=== PATIENT | male | born 1970 ===

== ENCOUNTER 2019-06-28 18:34 | Inpatient (IN) | payer BC ==
--- NOTE | 2019-06-28 20:20 | ED ---
Upper Extremity Pain - HPI Summary HPI Summary: This patient is a 48 year old M presenting to [facility] with a chief complaint of an abscess on his left forearm since 3 weeks ago. He complains of pain radiating from his left wrist to his left shoulder. Pt states his SO developed a similar abscess after they both injected heroin. he believes it might have been tainted., He has not been taking pain medications. The patient rates the pain 10/10 in severity. Symptoms aggravated by nothing. Symptoms alleviated by nothing. Patient reports upper back pain, fever, vomiting. Patient denies diarrhea. last used heroin about 6 pm today. - History of Current Complaint Chief Complaint: EDExtremityUpper Stated Complaint: ABSESS ON LT ARM PER PT Time Seen by Provider: 06/28/19 20:11 Hx Obtained From: Patient Onset/Duration: Started Weeks Ago - 3, Still Present Severity Initially: Moderate Severity Currently: Moderate Pain Location: Forearm - left to left shoulder Aggravating Factor(s): Nothing Alleviating Factor(s): Nothing Associated Signs & Symptoms: Positive: Fever, Vomiting, Other - positive - upper back pain, abscess on his left forearm, pain radiating from his left wrist to his left shoulder. negative - diarrhea. - Allergies/Home Medications Allergies/Adverse Reactions: Allergies Allergy/AdvReac Type Severity Reaction Status Date / Time bupropion Allergy Hives Verified 06/28/19 21:56 Home Medications: Home Medications Buprenorp/Nalox 8-2 MG FILM [Suboxone] 3 film SL DAILY 06/28/19 [History Confirmed 06/28/19] Gabapentin TAB(NF) [Neurontin 600 mg TAB(NF)] 600 mg PO QID 06/28/19 [History Confirmed 06/28/19] Benzonatate CAP* [Tessalon 100 MG CAP*] 100 mg PO TID 06/29/19 [History Confirmed 06/29/19] FLUoxetine CAP* [Prozac CAP*] 30 mg PO DAILY 06/29/19 [History Confirmed ] Fluticasone/Vilanterol [Breo Ellipta 200-25 Mcg INH] 1 puff INH DAILY 06/29/19 [ History Confirmed 06/29/19] Ibuprofen 600 mg PO Q6HR PRN 06/29/19 [History Confirmed 06/29/19] Omeprazole CAP (NF) [Prilosec CAP* 20 MG] 20 mg PO BID 06/29/19 [History Confirmed 06/29/19] Ondansetron TAB* [Zofran 4 MG Tab*] 4 mg PO TID PRN 06/29/19 [History Confirmed 06/29/19] PMH/Surg Hx/FS Hx/Imm Hx Previously Healthy: No Sensory History: Denies: Hx Cataracts, Hx Contacts or Glasses, Hx Vision Problem, Hx Deafness EENT History: Denies: Hx Deafness, Hx Auditory Problems - Surgical History Surgical History: None Infectious Disease History: No Infectious Disease History: Denies: Traveled Outside the [place] in Last 30 Days - Family History Known Family History: Positive: None - Social History Alcohol Use: Occasionally Substance Use Type: Reports: Heroin Hx Tobacco Use: No Smoking Status (MU): Never Smoked Tobacco Review of Systems Positive: Fever Positive: Vomiting. Negative: Diarrhea Musculoskeletal: Other - positive - upper back pain, pain radiating from his left wrist to his left shoulder. Skin: Other - positive - abscess on left forearm All Other Systems Reviewed And Are Negative: Yes Physical Exam - Summary Physical Exam Summary: General: Well-developed, Well-nourished obese MALE. Moderate discomfort. HEENT: Normocephalic, Atraumatic. Edentulous Eyes: Conjuctiva normal, PERRL. Ears: TMs within normal limits. Nares: (-) discharge, (-) erythema. Oropharynx: Clear, mucous membranes moist, (-) exudates. Neck: Soft, FROM, (-) lymphadenopathy, (-) thyromegaly, (-) JVD. Cardiovascular: Normal sinus rhythm, (-) murmur. Lungs: Clear to auscultation bilaterally (-) wheezes, (-) rales, (-) rhonchi. Abdomen: Soft, non-tender, non-distended, (-) organomegaly, normal bowel sounds. Back: (-) CVA tenderness Extremities: No edema. Skin: Warm, dry, (-) rash. Left arm has erythema and swelling from the whole forearm and hand, worst at the wrist area. Warm and tender to palpation Neuro: Alert and oriented x3, no focal deficits. Psychiatric: Mood normal, affect normal. Triage Information Reviewed: Yes Vital Signs On Initial Exam: Initial Vitals Temp Pulse Resp BP Pulse Ox 100.6 F 108 20 142/92 92 06/28/19 18:36 06/28/19 18:36 06/28/19 18:36 06/28/19 18:36 06/28/19 18:36 Vital Signs Reviewed: Yes Procedures - Sedation Patient Received Moderate/Deep Sedation with Procedure: No Diagnostics - Vital Signs Vital Signs Temp Pulse Resp BP Pulse Ox 06/28/19 18:36 100.6 F 108 20 142/92 92 - Laboratory Result Diagrams: 06/28/19 20:31 06/28/19 20:31 Lab Statement: Any lab studies that have been ordered have been reviewed, and results considered in the medical decision making process. Course/Dx - Course Course Of Treatment: patient with cellulitis for 2-3 weeks. elevated wbc and lactic acid. During ED course, pt was given Toradol, fluids, Zofran, Zosyn. referred to hospitalist for admission and iv antibiotics - Diagnoses Provider Diagnoses: Cellulitis, IV drug user - Physician Notifications Discussed Care of Patient With: Dr. Rose Time Discussed With Above Provider: 21:44 Instructed by Provider To: Other - Dr. Rose agrees to admit pt. Discharge ED - Sign-Out/Discharge Documenting (check all that apply): Patient Departure - admit - Discharge Plan Condition: Stable Disposition: ADMITTED TO [facility] - Billing Disposition and Condition Condition: STABLE Disposition: Admitted to [facility] - Attestation Statements Document Initiated by Amilcar: Yes Documenting Scribe: Demetrio Shirley Provider For Whom Amilcar is Documenting (Include Credential): Dr. Makeda Mireles MD Scribe Attestation: IDemetrio scribed for Dr. Makeda Mireles MD on 06/29/19 at 0520. Scribe Documentation Reviewed: Yes Provider Attestation: The documentation as recorded by the Demetrio deras accurately reflects the service I personally performed and the decisions made by me, Dr. Makeda Mireles MD Status of Scribe Document: Viewed
[2019-06-28] MEDS ORDERED: NS 0.9% 1000 ML** 1,000 ML IV ONE (20:29)
[2019-06-28] MEDS ORDERED: Piperacillin/Tazobac ADVAN(*) 3.375 GM in NS 0.9% 100 ML* 100 ML IVPB ONE (20:29)
[2019-06-28] MEDS ORDERED: Ondansetron INJ* 2 MG/ML VIAL IV ONE (20:37)
[2019-06-28] MEDS ORDERED: Ketorolac INJ* 30 MG/ML 1 ML VIAL IV PUSH ONE (20:37)
[2019-06-28] MEDS ORDERED: Acetaminophen TAB* 325 MG PO ONE (20:38)
[2019-06-28 20:40] LABS: ABS Basophils 0.1 10^3/ul (0-0.2); ABS Lymphocytes 1.2 10^3/ul (1.0-4.8); ABS Neutrophils 13.9 10^3/ul (1.5-7.7); Hematocrit 41 % (42-52); Lymphocyte % 7.5 %; Mean Corpuscular HGB Conc 34 g/dL (31-36); Mean Corpuscular Hemoglobin 32 pg (27-31); Mean Corpuscular Volume 92 fL (80-94); Platelet Count 316 10^3/uL (150-450); Red Blood Count 4.42 10^6 /uL (4.18-5.48); Red Cell Distribution Width 14 % (10-15); White Blood Count 16.1 10^3/uL (3.5-10.8)
[2019-06-28 20:48] LABS: INR 1.48 (0.82-1.09)
[2019-06-28 20:52] LABS: Albumin 4.1 g/dL (3.2-5.2); Calcium 9.1 mg/dL (8.6-10.3); Potassium 4.1 mmol/L (3.5-5.0); Total Bilirubin 0.7 mg/dL (0.2-1.0)
[2019-06-28 20:55] LABS: Urine Appearance Clear; Urine Bilirubin Negative (Negative); Urine Blood 1+ (Negative); Urine Color Yellow; Urine Glucose Negative (Negative); Urine Ketones Negative (Negative); Urine Nitrite Negative (Negative); Urine Protein Negative (Negative); Urine Specific Gravity 1.021 (1.010-1.030); Urine Urobilinogen Negative (Negative)
[2019-06-28 20:57] LABS: Urine Bacteria Absent (Absent); Urine Red Blood Cell 1+(3-5/hpf) (Absent); Urine Squamous Epithelial Cell Present (Absent); Urine White Blood Cell Absent (Absent)
[2019-06-28 20:58] LABS: Albumin/Globulin Ratio 0.9 (1-3); BUN/Creatinine Ratio 11.9 (8-20); EGFR African American 79.4 (>60); EGFR Non-African American 65.6 (>60); Globulin 4.8 g/dL (2-4); Total Protein 8.9 g/dL (6.4-8.9)
[2019-06-28 21:49] LABS: Urine Benzodiazepine Screen None Detected (None Detect); Urine Opiates Screen Presumptive Positive (None Detect)
--- NOTE | 2019-06-28 22:28 | HP ---
History of Present Illness - History of Present Illness Reason for Visit: arm abscess History of Present Illness: 48 year old male with history of polysubstance abuse came tot he ED with left arm pain from an abscess. He used on that arm and developed an infection, it has been a month since he has had this infection. He came to the ED because the pain is now 10/10. it radiates from wrist to shoulder. His gf used same needle as well, and now [facility] with [facility]es and bacteremia. - Past Medical History Psych: Addictions Review of Systems - Measurements Intake and Output: Intake and Output Last 24 Hours 06/26/19 06/27/19 06/28/19 06/29/19 06:59 06:59 06:59 06:59 Intake Total 1100 Balance 1100 Weight 236 lb Intake: IV Fluids 1100 - Review of Systems Constitutional Symptoms: Positive: Fever, Night Sweats Dermatology: Positive: Skin Lesions HEENT: Negative: Normal, Change in Hearing, Vertigo, Dental Problems, Tinnitus, Sinus Problem, Other Eyes: Negative: Normal, Change in Vision, Double Vision, Eye Pain, Glaucoma, Cataract, Contacts or Glasses, Other Thyroid: Negative: Normal, Goiter, Thyroid Nodule, Cold Intolerance, Heat Intolerance , Sweatiness, Tremor, Frequent Defecation, Constipation, Palpitations, Primary Hypothyroidism, Primary Hyperthyroidism, Weight Loss, Weight Gain, Change in Skin/Hair, Change in Menstruation, Radiation Exposure, Other Pulmonary: Negative: Normal, Cough, Sputum, Hemoptysis, Wheezing, Respiratory Distress, Shortness of Breath, COPD, Asthma, Exercise Intolerance, Home Oxygen, Other Cardiology: Negative: Normal, Chest Pain, Shortness of Breath, Palpitations, Swelling of Ankles, Peripheral Vascular Dis, Edema, Faintness, Syncope, Claudication, Proximal NocturnalDyspnea, Orthopnoea, Other Gastroenterology: Negative: Normal, Abdominal Pain, Nausea, Vomiting, Anorexia, Indigestion, Difficulty Swallowing, Heartburn, Constipation, Diarrhea, Blood in Stools, Change in Bowel Habits, Haematemesis, Melena, Other Genital - Urinary: Negative: Normal, Dysuria, Hematuria, Polyuria, Nocturia, Other Musculoskeletal: Negative: Joint Pain, Joint Stiffness, Arthritis, Osteoporosis, Low Back Pain , Sciatica, Joint Deformities, Kyphoscoliosis, Other Hematologic/Lymphatic: Negative: Anemia, Easy Bruising, Hx Leukemia, Hx Lymphoma, Use of Anticoagulant, Use of Antiplatelet Drugs, Other Neurology: Negative: Normal, Headache, Migraines, Change in Vision, Diplopia, Dizziness , Change in Balancing, Change in Coordination, Change in Memory, Change in Speech, Change in Sphincter Function, Change in Walking, Numbness\Paresthesiae, Unexplained Weakness, Hx of Stroke\TIA, Hx of Seizures, Other Psychiatry: Negative: Normal, Depression, Anxiety, Depressed Mood, Anhedonia, Sexual Dysfunction, Weight Change, Guilt Feelings, Tearfulness, Unusual Fatigue, Unusual Anxiety, Suicidal Ideation, Hypomania, Eating Disorders, Other Allergic/Immunologic: Negative: Hx Anaphylaxis, Hx Angioedema, Hx Environmental, Hx Seasonal, Asthma, Hx HIV, Immunocompromise, Swollen Glands LymphNodes, Other Objective Active Medications: Acetaminophen (Tylenol Tab*) 650 mg PO Q4H PRN PRN Reason: MILD PAIN or TEMP > 100.4 Heparin Sodium (Porcine) (Heparin Vial(*)) 5,000 units SUBCUT Q8HR [facility] Sodium Chloride (Ns 0.9% 1000 Ml) 1,000 mls @ 100 mls/hr IV PER RATE [facility] Ondansetron HCl (Zofran Inj*) 4 mg IV Q4H PRN PRN Reason: NAUSEA Oxycodone/Acetaminophen (Percocet 5/325 Tab*) 1 tab PO Q4H PRN PRN Reason: PAIN - MODERATE Vital Signs - 8 hr 06/28/19 06/28/19 06/28/19 18:36 20:26 20:30 Temperature 100.6 F Pulse Rate 108 201 203 Respiratory 20 Rate Blood Pressure 142/92 178/94 (mmHg) O2 Sat by Pulse 92 91 91 Oximetry 06/28/19 06/28/19 06/28/19 20:45 21:00 21:01 Temperature 103.2 F Pulse Rate 98 104 Respiratory 12 14 Rate Blood Pressure 144/79 (mmHg) O2 Sat by Pulse 94 96 Oximetry 06/28/19 06/28/19 06/28/19 21:30 21:54 22:00 Temperature 99.5 F Pulse Rate 87 82 Respiratory 20 12 Rate Blood Pressure 128/74 118/74 (mmHg) O2 Sat by Pulse 94 94 Oximetry 06/28/19 22:01 Temperature Pulse Rate 92 Respiratory 17 Rate Blood Pressure (mmHg) O2 Sat by Pulse 94 Oximetry Oxygen Devices in Use Now: Nasal Cannula Appearance: body sweats, he is drenched. Eyes: No Scleral Icterus, PERRLA Ears/Nose/Mouth/Throat: Clear Oropharnyx, Mucous Membranes Moist Neck: NL Appearance and Movements; NL JVP, Trachea Midline Respiratory: Symmetrical Chest Expansion and Respiratory Effort, Clear to Auscultation Cardiovascular: NL Sounds; No Murmurs; No JVD, RRR, No Edema Abdominal: NL Sounds; No Tenderness; No Distention, No Hepatosplenomegaly Lymphatic: No Cervical Adenopathy Extremities: No Edema, No Clubbing, Cyanosis, - - fluctuant area (left upper EXT concerninf for abscess) with surrouding edema and erythema extending from his wrist to elbow Skin: - - erythema ( left arm) Neurological: Alert and Oriented x 3, NL Sensation, NL Muscle Strength and Tone Result Diagrams: 06/28/19 20:31 06/28/19 20:31 Assess/Plan/Problems-Billing Assessment: - Patient Problems (1) Abscess of arm, left Current Visit: Yes Status: Acute Code(s): L02.414 - CUTANEOUS ABSCESS OF LEFT UPPER LIMB SNOMED Code(s): 37187134412154981 Comment: 1 month hx of abscess from IV drug use, with surrounding edema and erythema from wrist to elbow. Pt has pain from wrist to shoulder team to consult surgery in the morning for I&D Vanc and zosyn blood cultures CXR (2) Heroin use Current Visit: Yes Status: Acute Code(s): F11.90 - OPIOID USE, UNSPECIFIED, UNCOMPLICATED SNOMED Code(s): 7150895 Comment: last use this evening, already appears to be in withdrawals clonidine prn for withdrawals (3) Full code status Current Visit: Yes Status: Acute Code(s): Z78.9 - OTHER SPECIFIED HEALTH STATUS SNOMED Code(s): 105994357 (4) DVT prophylaxis Current Visit: Yes Status: Acute Code(s): Z29.9 - ENCOUNTER FOR PROPHYLACTIC MEASURES, UNSPECIFIED SNOMED Code(s): 075564676
[2019-06-28] MEDS ORDERED: Vancomycin(*) 1,500 MG in NS 0.9% 250 ML* 250 ML IVPB ONE (22:36)
[2019-06-28] MEDS: Heparin VIAL(*) 5000 UNITS/ML VIAL (FIVE THOUSAND) SUBCUT SCH (22:47)
[2019-06-28 22:49] LABS: Erythrocyte Sed Rate 72 mm/Hr (0-14)
[2019-06-28] MEDS ORDERED: Zosyn per Pharmacy* NOTE FOLLOW UP SCH (23:00)
[2019-06-28] MEDS ORDERED: Vancomycin per Pharmacy* NOTE FOLLOW UP SCH (23:00)
[2019-06-29] MEDS: NS 0.9% 1000 ML** 1,000 ML IV SCH ×2 (00:53→20:45)
[2019-06-29] MEDS: ZOSYN 3.375 GM Q8H per EXTENDED INFUSION IVPB SCH ×6 (00:53→17:19)
[2019-06-29] MEDS: Heparin VIAL(*) 5000 UNITS/ML VIAL (FIVE THOUSAND) SUBCUT SCH ×3 (05:50→21:30)
[2019-06-29] MEDS: Vancomycin(*) 1,000 MG in NS 0.9% 250 ML* 250 ML IV SCH ×3 (05:58→22:28)
[2019-06-29 06:21] LABS: ABS Eosinophils 0.1 10^3/ul (0-0.6); ABS Lymphocytes 1.3 10^3/ul (1.0-4.8); ABS Monocytes 1.1 10^3/ul (0-0.8); ABS Neutrophils 8.2 10^3/ul (1.5-7.7); Eosinophil % 0.5 %; Hematocrit 37 % (42-52); Hemoglobin 12.7 g/dL (14.0-18.0); Lymphocyte % 12.5 %; Mean Corpuscular HGB Conc 35 g/dL (31-36); Mean Corpuscular Hemoglobin 32 pg (27-31); Mean Corpuscular Volume 92 fL (80-94); Mean Platelet Volume 7.5 fL (7.4-10.4); Platelet Count 226 10^3/uL (150-450); Red Blood Count 3.96 10^6 /uL (4.18-5.48); Red Cell Distribution Width 13 % (10-15); White Blood Count 10.7 10^3/uL (3.5-10.8)
[2019-06-29 06:35] LABS: BUN/Creatinine Ratio 14.3 (8-20); Calcium 8.3 mg/dL (8.6-10.3); EGFR African American 84.3 (>60); EGFR Non-African American 69.7 (>60); Potassium 3.6 mmol/L (3.5-5.0)
[2019-06-29] MEDS: oxyCODONE/Acetamin 5/325 MG* TAB PO PRN ×4 (08:00→23:58)
[2019-06-29] MEDS: cloNIDine TAB* 0.1 MG PO PRN ×3 (08:09→19:45)
--- NOTE | 2019-06-29 10:56 | CONSULT ---
Consult Consult: DATE OF CONSULTATION: 06/29/19 REASON FOR CONSULTATION: Left arm cellulitis, possible abscess HPI: Mr Crowder is a 48 yo man with a history of IVDA who was admitted with L forearm cellulitis. He reports that he first noticed redness and pain 3-4 weeks ago at the medial wrist at the site where he injects. He has had night sweats and subjective fevers for the past 2 weeks. The pain continued to worsen, and he started having pain in the left shoulder yesterday. He presented to the ED due to the L shoulder pain and concern for worsening infection. He also reports palpitations yesterday which have resolved. His appetite is unchanged however he reports a 25-lb weight loss over the past 3 weeks. The patient was admitted to the hospitalist service and started on vancomycin and Zosyn. He was febrile last night but afebrile this morning. PAST MEDICAL HISTORY: IVDA PAST SURGICAL HISTORY: Laparoscopic cholecystectomy 2007 Home Medications Medication Instructions Recorded Confirmed Type Buprenorp/Nalox 8-2 MG FILM 3 film SL DAILY 06/28/19 06/28/19 History [Suboxone] Gabapentin TAB(NF) [Neurontin 600 600 mg PO QID 06/28/19 06/28/19 History mg TAB(NF)] Benzonatate CAP* [Tessalon 100 MG 100 mg PO TID 06/29/19 06/29/19 History CAP*] FLUoxetine CAP* [Prozac CAP*] 30 mg PO DAILY 06/29/19 06/29/19 History Fluticasone/Vilanterol [Breo 1 puff INH DAILY 06/29/19 06/29/19 History Ellipta 200-25 Mcg INH] Ibuprofen 600 mg PO Q6HR PRN 06/29/19 06/29/19 History Omeprazole CAP (NF) [Prilosec CAP* 20 mg PO BID 06/29/19 06/29/19 History 20 MG] Ondansetron TAB* [Zofran 4 MG Tab*] 4 mg PO TID PRN 06/29/19 06/29/19 History Allergies bupropion Allergy (Verified 06/28/19 21:56) Hives FAMILY HISTORY: Father 1 year ago due to emphysema. Mother is alive and reportedly healthy. Siblings healthy. SOCIAL HISTORY: Smokes 0.5 ppd since age 9. Denies alcohol use but did drink heavily when he was a teenager. Uses heroin, last injection yesterday. His girlfriend is hospitalized in [place] due to pulmonary abscesses due to IVDA. ROS: A 14-point review of systems was completed and pertinent findings are in HPI. PHYSICAL EXAM: Temp Pulse Resp BP Pulse Ox 97.7 F 82 16 120/59 96 06/29/19 07:15 06/29/19 07:15 06/29/19 10:00 06/29/19 07:15 06/29/19 07:15 GENERAL: No acute distress HEAD: Normocephalic, atraumatic. EYES: EOMI. MOUTH: Moist mucous membranes. CV: RRR CHEST: Clear to auscultation bilaterally ABDOMEN: Soft, nontender, nondistended. EXTREMITIES: Warm, well-perfused. No pedal edema. L radial pulse 2+ SKIN: Erythema and swelling of the medial aspect of distal L forearm. Tender to palpation. L hand and forearm are swollen. No fluctuance over the distal forearm. NEURO: Alert and oriented x3. Abnormal Lab Results 06/28/19 06/28/19 06/28/19 20:30 20:31 20:31 WBC 16.1 H RBC 4.42 Hgb 14.0 Hct 41 L MCV 92 MCH 32 H MCHC 34 RDW 14 Plt Count 316 MPV 7.0 L Neut % (Auto) 86.1 Lymph % (Auto) 7.5 [place] % (Auto) 6.0 Eos % (Auto) 0.0 Baso % (Auto) 0.4 Absolute Neuts (auto) 13.9 H Absolute Lymphs (auto) 1.2 Absolute Monos (auto) 1.0 H Absolute Eos (auto) 0.0 Absolute Basos (auto) 0.1 Absolute Nucleated RBC 0.0 Nucleated RBC % 0.0 ESR 72 H INR (Anticoag Therapy) 1.48 H Sodium 130 L Potassium 4.1 Chloride 93 L Carbon Dioxide 26 Anion Gap 11 BUN 14 Creatinine 1.18 H Est GFR ( Amer) 79.4 Est GFR (Non-Af Amer) 65.6 BUN/Creatinine Ratio 11.9 Glucose 107 H Lactic Acid Calcium 9.1 Total Bilirubin 0.70 AST 51 H ALT 57 H Alkaline Phosphatase 135 H Total Protein 8.9 Albumin 4.1 Globulin 4.8 H Albumin/Globulin Ratio 0.9 L Urine Color Urine Appearance Urine pH Ur Specific [place] Urine Protein Urine Ketones Urine Blood Urine Nitrate Urine Bilirubin Urine Urobilinogen Ur Leukocyte Esterase Urine WBC (Auto) Urine RBC (Auto) Ur Squamous Epith Cells Urine Bacteria Urine Glucose Urine Opiates Screen Ur Barbiturates Screen Ur Phencyclidine Scrn Ur Amphetamines Screen U Benzodiazepines Scrn Urine Cocaine Screen U Cannabinoids Screen 06/28/19 06/28/19 06/28/19 20:31 20:37 20:37 WBC RBC Hgb Hct MCV MCH MCHC RDW Plt Count MPV Neut % (Auto) Lymph % (Auto) [place]ink[place] % (Auto) Eos % (Auto) Baso % (Auto) Absolute Neuts (auto) Absolute Lymphs (auto) Absolute Monos (auto) Absolute Eos (auto) Absolute Basos (auto) Absolute Nucleated RBC Nucleated RBC % ESR INR (Anticoag Therapy) Sodium Potassium Chloride Carbon Dioxide Anion Gap BUN Creatinine Est GFR ( Amer) Est GFR (Non-Af Amer) BUN/Creatinine Ratio Glucose Lactic Acid 1.6 Calcium Total Bilirubin AST ALT Alkaline Phosphatase Total Protein Albumin Globulin Albumin/Globulin Ratio Urine Color Yellow Urine Appearance Clear Urine pH 5.0 Ur Specific [place] 1.021 Urine Protein Negative Urine Ketones Negative Urine Blood 1+ A Urine Nitrate Negative Urine Bilirubin Negative Urine Urobilinogen Negative Ur Leukocyte Esterase Negative Urine WBC (Auto) Absent Urine RBC (Auto) 1+(3-5/hpf) A Ur Squamous Epith Cells Present A Urine Bacteria Absent Urine Glucose Negative Urine Opiates Screen Presumptive positive A Ur Barbiturates Screen None detected Ur Phencyclidine Scrn None detected Ur Amphetamines Screen None detected U Benzodiazepines Scrn None detected Urine Cocaine Screen Presumptive positive A U Cannabinoids Screen None detected 06/29/19 06/29/19 06/29/19 00:41 06:10 06:10 WBC 10.7 RBC 3.96 L Hgb 12.7 L Hct 37 L MCV 92 MCH 32 H MCHC 35 RDW 13 Plt Count 226 MPV 7.5 Neut % (Auto) 76.6 Lymph % (Auto) 12.5 Wink[place] % (Auto) 10.0 Eos % (Auto) 0.5 Baso % (Auto) 0.4 Absolute Neuts (auto) 8.2 H Absolute Lymphs (auto) 1.3 Absolute Monos (auto) 1.1 H Absolute Eos (auto) 0.1 Absolute Basos (auto) 0.0 Absolute Nucleated RBC 0.0 Nucleated RBC % 0.0 ESR INR (Anticoag Therapy) Sodium 133 L Potassium 3.6 Chloride 101 Carbon Dioxide 27 Anion Gap 5 BUN 16 Creatinine 1.12 Est GFR ( Amer) 84.3 Est GFR (Non-Af Amer) 69.7 BUN/Creatinine Ratio 14.3 Glucose 122 H Lactic Acid 0.7 Calcium 8.3 L Total Bilirubin AST ALT Alkaline Phosphatase Total Protein Albumin Globulin Albumin/Globulin Ratio Urine Color Urine Appearance Urine pH Ur Specific [place] Urine Protein Urine Ketones Urine Blood Urine Nitrate Urine Bilirubin Urine Urobilinogen Ur Leukocyte Esterase Urine WBC (Auto) Urine RBC (Auto) Ur Squamous Epith Cells Urine Bacteria Urine Glucose Urine Opiates Screen Ur Barbiturates Screen Ur Phencyclidine Scrn Ur Amphetamines Screen U Benzodiazepines Scrn Urine Cocaine Screen U Cannabinoids Screen ASSSESSMENT: 48 yo man with L forearm cellulitis secondary to IV drug abuse. There does not appear to be an abscess at this time. PLAN: -Continue broad-spectrum antibiotics. -Will continue to follow to watch for abscess, but does not need incision and drainage at this time.
--- NOTE | 2019-06-29 11:59 | PN ---
Subjective Date of Service: 06/29/19 Interval History: Patient sleeping when I arrived, aroused easily. C/o LT forearm pain for 3 weeks, area of swelling lateral forearm over distal radius. Family History: Unchanged from Admission Social History: Unchanged from Admission Past Medical History: Unchanged from Admission Objective Active Medications: Acetaminophen (Tylenol Tab*) 650 mg PO Q4H PRN PRN Reason: MILD PAIN or TEMP > 100.4 Clonidine HCl (Catapres Tab*) 0.1 mg PO TID PRN PRN Reason: WITHDRAWAL - OPIATE Last Admin: 06/29/19 08:09 Dose: 0.1 mg Heparin Sodium (Porcine) (Heparin Vial(*)) 5,000 units SUBCUT Q8HR [facility] Last Admin: 06/29/19 05:50 Dose: Not Given Hydromorphone HCl (Dilaudid Inj*) 1 mg IV SLOW PU Q3H PRN PRN Reason: PAIN - SEVERE Sodium Chloride (Ns 0.9% 1000 Ml) 1,000 mls @ 100 mls/hr IV PER RATE [facility] Last Admin: 06/29/19 00:53 Dose: 100 mls/hr Piperacillin Sod/Tazobactam (Sod 3.375 gm/ Sodium Chloride) 100 mls @ 25 mls/ hr IVPB Q8H [facility] Last Admin: 06/29/19 08:09 Dose: 25 mls/hr Vancomycin HCl 1,000 mg/ (Sodium Chloride) 250 mls @ 166.667 mls/hr IV Q8H [facility] Last Admin: 06/29/19 05:58 Dose: 166.667 mls/hr Ondansetron HCl (Zofran Inj*) 4 mg IV Q4H PRN PRN Reason: NAUSEA Oxycodone/Acetaminophen (Percocet 5/325 Tab*) 1 tab PO Q4H PRN PRN Reason: PAIN - MODERATE Last Admin: 06/29/19 08:00 Dose: 1 tab Vital Signs - 8 hr 06/29/19 06/29/19 06/29/19 07:15 08:00 10:00 Temperature 36.5 C Pulse Rate 82 Respiratory 18 22 16 Rate Blood Pressure 120/59 (mmHg) O2 Sat by Pulse 96 Oximetry Oxygen Devices in Use Now: None Appearance: alert, no distress Eyes: No Scleral Icterus Neck: NL Appearance and Movements; NL JVP Respiratory: Symmetrical Chest Expansion and Respiratory Effort, Clear to Auscultation Cardiovascular: NL Sounds; No Murmurs; No JVD Skin: - - erythema from LT wrist to above LT elbow, area of induration, tenderness, 2cm, lateral LT forearm, no fluctuance Neurological: Alert and Oriented x 3 Lines/Tubes/Other Access: Clean, Dry and Intact Peripheral IV Result Diagrams: 06/29/19 06:10 06/29/19 06:10 Assess/Plan/Problems-Billing Assessment: 48 year old male, user of IV heroin, here with left forearm cellulitis and possible developing abscess due to re-using needles. - Patient Problems (1) Abscess of arm, left Current Visit: Yes Status: Acute Priority: High Code(s): L02.414 - CUTANEOUS ABSCESS OF LEFT UPPER LIMB SNOMED Code(s): 24664462634909463 Comment: Certainly has cellulitis, suspect Staph Aureus Continue Vanc and zosyn Appreciate surgery consult, no I&D at this time Will check for collection w/ U/S (2) Heroin use Current Visit: Yes Status: Acute Priority: Medium Code(s): F11.90 - OPIOID USE, UNSPECIFIED, UNCOMPLICATED SNOMED Code(s): 5351385 Comment: -Cannot start suboxone until pain control w/ other opiates obtained -May use dilaudid and oxycodone for LT forearm pain, will have low pain tolerance. -clonidine prn for withdrawals (3) DVT prophylaxis Current Visit: Yes Status: Acute Priority: Low Code(s): Z29.9 - ENCOUNTER FOR PROPHYLACTIC MEASURES, UNSPECIFIED SNOMED Code(s): 235616569 Comment: -SC heparin
[2019-06-29] MEDS: HYDROmorphone INJ1* 1 MG/ML SYRINGE IV SLOW PU PRN ×4 (12:34→22:39)
[2019-06-29] MEDS: Acetaminophen TAB* 325 MG PO PRN ×2 (12:35→21:44)
[2019-06-29] MEDS: Ondansetron INJ* 2 MG/ML VIAL IV PRN (19:45)
[2019-06-29] MEDS ORDERED: fentaNYL* 50 MCG/ML 2 ML VIAL (100 MCG VIAL) IV SLOW PU ONE (21:01)
[2019-06-30] MEDS: ZOSYN 3.375 GM Q8H per EXTENDED INFUSION IVPB SCH ×4 (01:18→10:52)
[2019-06-30] MEDS: Acetaminophen TAB* 325 MG PO PRN (01:39)
[2019-06-30] MEDS: cloNIDine TAB* 0.1 MG PO PRN (02:36)
[2019-06-30] MEDS: HYDROmorphone INJ1* 1 MG/ML SYRINGE IV SLOW PU PRN ×7 (02:36→23:20)
[2019-06-30] MEDS: oxyCODONE/Acetamin 5/325 MG* TAB PO PRN ×4 (04:17→17:04)
[2019-06-30] MEDS ORDERED: Vancomycin Trough Check NOTE FOLLOW UP ONE (05:30)
[2019-06-30] MEDS: Heparin VIAL(*) 5000 UNITS/ML VIAL (FIVE THOUSAND) SUBCUT SCH ×3 (06:30→21:11)
[2019-06-30] MEDS: Vancomycin(*) 1,000 MG in NS 0.9% 250 ML* 250 ML IV SCH (07:52)
--- NOTE | 2019-06-30 10:21 | PN ---
Progress Note - Progress Note Date of Service: 06/30/19 Note: Patient complains of pain and swelling in the left forearm. He feels the swelling is worse than yesterday. He was afebrile overnight. He still has decreased appetite and some nausea, but he is not vomiting and tolerates clear liquids. Denies chest pain, shortness of breath, or abdominal pain. Ultrasound of the left forearm yesterday showed superficial thrombophlebitis and no fluid collection. Temp Pulse Resp BP Pulse Ox 98.3 F 58 18 119/60 97 06/30/19 07:28 06/30/19 07:28 06/30/19 10:12 06/30/19 07:28 06/30/19 07:28 General: No acute distress Chest: Breathing comfortably on room air. Extremities: Left distal forearm with erythema and tenderness to palpation. Left forearm is swollen, but no area of fluctuance. Erythema is unchanged from yesterday. Neuro: Alert and oriented 3 A&P: 48-year-old man with left forearm cellulitis and superficial thrombophlebitis secondary to IV drug abuse. Continue antibiotics. Warm compresses to the distal left forearm as tolerated. Elevate left arm as often as possible.
[2019-06-30] MEDS: NS 0.9% 1000 ML** 1,000 ML IV SCH (11:00)
[2019-06-30] MEDS ORDERED: Clindamycin 900 MG/D5W BAG(*) 900 MG/50 ML BAG IVPB SCH (13:00)
[2019-06-30] MEDS ORDERED: Vancomycin per Pharmacy* NOTE FOLLOW UP SCH (13:00)
[2019-06-30] MEDS ORDERED: Vancomycin(*) 1,000 MG in NS 0.9% 250 ML* 250 ML IV SCH (16:00)
[2019-06-30] MEDS ORDERED: Clindamycin 600 MG/D5W BAG(*) 600 MG/50 ML BAG IV SCH (16:30)
--- NOTE | 2019-06-30 17:35 | PN ---
Subjective Date of Service: 06/30/19 Interval History: Patient continues to have severe pain LT forearm. Feels things are not getting better. Asking for nicotine patch, smokes 1 PPD Has required escalating pain medication throughout day. Family History: Unchanged from Admission Social History: Unchanged from Admission Past Medical History: Unchanged from Admission Objective Active Medications: Acetaminophen (Tylenol Tab*) 650 mg PO Q4H PRN PRN Reason: MILD PAIN or TEMP > 100.4 Last Admin: 06/30/19 01:39 Dose: 650 mg Clonidine HCl (Catapres Tab*) 0.1 mg PO TID PRN PRN Reason: WITHDRAWAL - OPIATE Last Admin: 06/30/19 02:36 Dose: 0.1 mg Heparin Sodium (Porcine) (Heparin Vial(*)) 5,000 units SUBCUT Q8HR TINA Last Admin: 06/30/19 15:21 Dose: 5,000 units Hydromorphone HCl (Dilaudid Inj1s*) 2 mg IV SLOW PU Q3H PRN PRN Reason: PAIN - SEVERE Last Admin: 06/30/19 17:04 Dose: 2 mg Sodium Chloride (Ns 0.9% 1000 Ml) 1,000 mls @ 100 mls/hr IV PER RATE TINA Last Admin: 06/30/19 11:00 Dose: 100 mls/hr Clindamycin HCl/Dextrose (Cleocin 600 Mg/50 Ml(*)) 600 mg in 50 mls @ 100 mls/ hr IV Q6H TINA Ceftriaxone Sodium 1 gm/ (Sodium Chloride) 50 mls @ 100 mls/hr IVPB Q24H TINA Ondansetron HCl (Zofran Inj*) 4 mg IV Q4H PRN PRN Reason: NAUSEA Last Admin: 06/29/19 19:45 Dose: 4 mg Oxycodone/Acetaminophen (Percocet 5/325 Tab*) 2 tab PO Q4H PRN PRN Reason: PAIN - MODERATE Last Admin: 06/30/19 17:04 Dose: 2 tab Vital Signs - 8 hr 06/30/19 06/30/19 06/30/19 09:45 10:12 11:10 Temperature 36.6 C Pulse Rate 55 Respiratory 19 18 18 Rate Blood Pressure 133/70 (mmHg) O2 Sat by Pulse 96 Oximetry 06/30/19 06/30/19 06/30/19 11:14 11:45 11:55 Temperature Pulse Rate Respiratory 18 18 18 Rate Blood Pressure (mmHg) O2 Sat by Pulse Oximetry 06/30/19 06/30/19 06/30/19 13:00 13:01 14:00 Temperature Pulse Rate Respiratory 24 24 19 Rate Blood Pressure (mmHg) O2 Sat by Pulse Oximetry 06/30/19 06/30/19 06/30/19 15:00 15:32 17:04 Temperature 36.3 C Pulse Rate 58 Respiratory 19 18 19 Rate Blood Pressure 124/71 (mmHg) O2 Sat by Pulse 97 Oximetry Oxygen Devices in Use Now: None Appearance: alert, no distress Ears/Nose/Mouth/Throat: Clear Oropharnyx Respiratory: Clear to Auscultation Cardiovascular: NL Sounds; No Murmurs; No JVD Abdominal: NL Sounds; No Tenderness; No Distention Lines/Tubes/Other Access: Clean, Dry and Intact Peripheral IV Nutrition: Taking PO's Result Diagrams: 06/29/19 06:10 06/29/19 06:10 Microbiology and Other Data: Microbiology 06/28/19 20:29 Aerobic Blood Culture - Preliminary Blood Venous Strep Pyogenes (Grp A) Anaerobic Blood Culture - Preliminary No Growth Day 1 06/28/19 20:37 Aerobic Blood Culture - Preliminary Blood Venous Strep Pyogenes (Grp A) Anaerobic Blood Culture - Preliminary Strep Pyogenes (Grp A) Diagnostic Imaging: U/S LT arm, no abscess, +septic thrombophlebitis Assess/Plan/Problems-Billing Assessment: 48 year old male, user of IV heroin, here with left forearm cellulitis and thrombophlebitis due to re-using needles. - Patient Problems (1) Abscess of arm, left Current Visit: Yes Status: Acute Priority: High Code(s): L02.414 - CUTANEOUS ABSCESS OF LEFT UPPER LIMB SNOMED Code(s): 30062020062063585 Comment: -Certainly has cellulitis, proven to be strep A -Switched to ceftriaxone and clindamycin. -ID consult planned tomorow -Appreciate surgery input (2) Heroin use Current Visit: Yes Status: Acute Priority: Medium Code(s): F11.90 - OPIOID USE, UNSPECIFIED, UNCOMPLICATED SNOMED Code(s): 3674176 Comment: -Cannot start suboxone until pain control w/ other opiates obtained -May use dilaudid and oxycodone for LT forearm pain, will have low pain tolerance. -clonidine prn for withdrawals (3) DVT prophylaxis Current Visit: Yes Status: Acute Priority: Low Code(s): Z29.9 - ENCOUNTER FOR PROPHYLACTIC MEASURES, UNSPECIFIED SNOMED Code(s): 415558455 Comment: -SC heparin
[2019-06-30] MEDS: Nicotine PATCH 21 MG/24 HR* PATCH TRANSDERM SCH (20:49)
[2019-06-30] MEDS: Clindamycin 600 MG/D5W BAG(*) 600 MG/50 ML BAG IV SCH (20:50)
[2019-06-30] MEDS: cefTRIAXone(*) 1 GM in NS 0.9% 50 ML* 50 ML IVPB SCH (22:18)
[2019-07-01] MEDS: cloNIDine TAB* 0.1 MG PO PRN ×2 (00:09→21:21)
[2019-07-01] MEDS: oxyCODONE/Acetamin 5/325 MG* TAB PO PRN ×3 (00:09→10:32)
[2019-07-01] MEDS: Clindamycin 600 MG/D5W BAG(*) 600 MG/50 ML BAG IV SCH ×4 (00:12→19:44)
[2019-07-01] MEDS ORDERED: fentaNYL* 50 MCG/ML 2 ML VIAL (100 MCG VIAL) IV SLOW PU ONE (01:00)
[2019-07-01] MEDS: HYDROmorphone INJ1* 1 MG/ML SYRINGE IV SLOW PU PRN ×4 (02:33→13:52)
[2019-07-01] MEDS: NS 0.9% 1000 ML** 1,000 ML IV SCH ×2 (03:42→17:30)
[2019-07-01] MEDS: Heparin VIAL(*) 5000 UNITS/ML VIAL (FIVE THOUSAND) SUBCUT SCH ×3 (05:46→22:21)
[2019-07-01 06:43] LABS: EGFR African American 126.1 (>60); EGFR Non-African American 104.2 (>60); Troponin I 0.01 ng/mL (<0.03)
[2019-07-01] MEDS: Nicotine PATCH 21 MG/24 HR* PATCH TRANSDERM SCH (10:32)
[2019-07-01] MEDS: Nicotine Patch Removal NOTE PATCH OFF SCH ×2 (10:33→22:21)
--- NOTE | 2019-07-01 13:41 | PN ---
Progress Note - Progress Note Date of Service: 07/01/19 Note: Patient reports pain has improved but still has a significant amount of pain in L arm. Swelling has improved significantly after elevating L arm. Redness has also decreased. Patient's appetite still poor but denies nausea or vomiting. He has been drinking well and has been ambulating. Afebrile. Temp Pulse Resp BP Pulse Ox 97.4 F 54 20 138/86 98 07/01/19 07:11 07/01/19 07:11 07/01/19 12:32 07/01/19 07:11 07/01/19 07:11 General: No acute distress. Breathing comfortably on room air. L arm with erythema at medial wrist, improved from yesterday. No fluctuance. L forearm and hand with mild swelling only. Neuro: Alert and oriented x3 A&P 48M with L forearm cellulitis, Strep pyogenes bacteremia, and thrombophlebitis. Appears to be improving. -Continue antibiotics -Elevate L arm. Warm compresses.
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
--- NOTE | 2019-07-01 19:19 | PN ---
Progress Note - Progress Note Date of Service: 07/01/19 Note: Event Note: Patient concerned re withdrawal symptoms. Has sneezing, dry heaves, goose flesh , leg cramps, nausea. Last use Dilaudid 1pm, oxycodone in AM. Patient aware of risk of precipitated withdrawal. Outpatient dose suboxone 8/2 mg TID. Will d/c opiate agonists, and start suboxone tonight. Patient may go downstairs to [facility] with family briefly.
[2019-07-01] MEDS: Buprenorp/Nalox 8-2 MG FILM SL FILM SCH (19:55)
[2019-07-01] MEDS: cefTRIAXone(*) 1 GM in NS 0.9% 50 ML* 50 ML IVPB SCH (20:27)
[2019-07-01] MEDS ORDERED: Melatonin 3 MG TAB PO PRN (22:21)
[2019-07-01] MEDS: Acetaminophen TAB* 325 MG PO PRN (22:45)
[2019-07-01] MEDS: Ondansetron INJ* 2 MG/ML VIAL IV PRN (22:45)
[2019-07-02] MEDS: Clindamycin 600 MG/D5W BAG(*) 600 MG/50 ML BAG IV SCH ×2 (00:36→05:52)
[2019-07-02] MEDS: Heparin VIAL(*) 5000 UNITS/ML VIAL (FIVE THOUSAND) SUBCUT SCH (05:53)
[2019-07-02] MEDS: Buprenorp/Nalox 8-2 MG FILM SL FILM SCH (06:03)
[2019-07-02] MEDS ORDERED: Vancomycin Trough Check NOTE FOLLOW UP ONE (07:30)
[2019-07-02 07:34] VITALS: BP 116/52
[2019-07-02 07:59] LABS: EGFR African American 126.1 (>60); EGFR Non-African American 104.2 (>60)
[2019-07-02 08:35] LABS: C Reactive Protein 24.11 mg/L (<8.01)
[2019-07-02] MEDS: Nicotine PATCH 21 MG/24 HR* PATCH TRANSDERM SCH (09:14)
--- NOTE | 2019-07-02 17:01 | PN ---
Progress Note - Progress Note Date of Service: 07/02/19 - Late entry - ID Consult Note: Attempted to perform a full consult on the patient this morning. When I arrived to his room he was discharged and awaiting his ride. We had a brief discussion regarding the concern for infection in his arm and need for continued oral ABXs. I offered an appointment in my office for a formal consult. He said he would call the office if he wasn't improving. I went to get him the office number so he had it and he had left without the phone number.
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
== END 2019-07-02 10:00 | disposition home or self-care (01) | DRG 197 ==
LOC: ED 18:34 → MED 21:48
PROVIDERS: ADMIT Student in an Organized Health Care Education/Training Program; ATTEND Internal Medicine
DX: I80.8 Phlebitis and thrombophlebitis of other sites (principal); L03.114 Cellulitis of left upper limb; F11.90 Opioid use, unspecified, uncomplicated; B95.0 Streptococcus, group A, as the cause of diseases classified elsewhere; J45.909 Unspecified asthma, uncomplicated; K21.9 Gastro-esophageal reflux disease without esophagitis; M54.89 Other dorsalgia; F32.9 Major depressive disorder, single episode, unspecified; F17.210 Nicotine dependence, cigarettes, uncomplicated; Z79.1 Long term (current) use of non-steroidal anti-inflammatories (NSAID); Z79.899 Other long term (current) drug therapy
CPT/HCPCS: 36415; 71046; 80048; 80053; 80202; 80307; 81003; 81015; 82565; 83605; 84484; 84520; 85025; 85610; 85652; 86140; 87040; 87077; 87184; 87186; 87205; 93005; 96365; 96375; 99284; A9270-GY; J0696; J1170; J1644; J1885; J2405; J2543; J3010; J3370